=== PATIENT | male | born 1970 | race African-American/Black ===

== ENCOUNTER 2019-01-09 15:19 | Emergency (ER) | payer MEDICARE, MEDICAID ==
[2019-01-09 15:30] VITALS: BP 130/88
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
[2019-01-09 16:08] LABS: APPEARANCE,URINE CLEAR; BILIRUBIN,URINE NEGATIVE (NEGATIVE); COLOR,URINE YELLOW; GLUCOSE, URINE NEGATIVE (NEGATIVE); KETONES,URINE NEGATIVE (NEGATIVE); LEUKOCYTE ESTERASE,URINE NEGATIVE (NEGATIVE); NITRITE,URINE NEGATIVE (NEGATIVE); PROTEIN,URINE NEGATIVE (NEGATIVE); UROBILINOGEN,URINE NEGATIVE mg/dL (<2.0)
[2019-01-09 16:09] LABS: ABSOLUTE EOSINOPHILS # (AUTO) 0.1 10^3/uL (0.0-0.6); ABSOLUTE LYMPHOCYTES (AUTO) 1.5 10^3/uL (0.5-4.7); ABSOLUTE MONOCYTES (AUTO) 0.5 10^3/uL (0.1-1.4); ABSOLUTE NEUT (AUTO) 3.6 10^3/uL (1.7-8.2); BASOPHILS % (AUTO) 0.4 % (0-2); EOSINOPHILS % (AUTO) 1.1 % (0-6); HEMATOCRIT 42.6 % (37.9-51.0); LYMPHOCYTES % (AUTO) 26.6 % (13-45); MEAN CORPUSCULAR HEMOGLOBIN 27.7 pg (27.0-33.4); MEAN CORPUSCULAR HGB CONC 32.8 g/dL (32.0-36.0); MEAN CORPUSCULAR VOLUME 84 fl (80-97); MONOCYTES % (AUTO) 9.3 % (3-13); PLATELET COUNT 277 10^3/uL (150-450); RED BLOOD COUNT 5.05 10^6/uL (4.35-5.55); RED CELL DISTRIBUTION WIDTH 14.9 % (11.5-14.0); SEGMENTED NEUTROPHILS % (AUTO) 62.6 % (42-78); TOTAL CELLS COUNTED % (AUTO) 100 %; WHITE BLOOD COUNT 5.8 10^3/uL (4.0-10.5)
[2019-01-09 16:20] LABS: ALBUMIN 4.2 g/dL (3.5-5.0); ALKALINE PHOSPHATASE 83 U/L (38-126); ANION GAP 10 (5-19); ASPARTATE AMINO TRANSFERASE 16 U/L (17-59); BILIRUBIN,DIRECT 0.1 mg/dL (0.0-0.4); BILIRUBIN,TOTAL 0.3 mg/dL (0.2-1.3); BLOOD UREA NITROGEN 14 mg/dL (7-20); CALCIUM 9.6 mg/dL (8.4-10.2); CARBON DIOXIDE 27 mmol/L (22-30); CHLORIDE 103 mmol/L (98-107); GLUCOSE 78 mg/dL (75-110); POTASSIUM 3.8 mmol/L (3.6-5.0); TOTAL PROTEIN 7.4 g/dL (6.3-8.2)
[2019-01-09 16:28] LABS: URINE AMPHETAMINES SCREEN NEGATIVE; URINE BARBITURATES SCREEN NEGATIVE; URINE BENZODIAZEPINES SCREEN NEGATIVE; URINE COCAINE SCREEN NEGATIVE; URINE MARIJUANA (THC) SCREEN NEGATIVE; URINE METHADONE SCREEN NEGATIVE; URINE PHENCYCLIDINE SCREEN NEGATIVE
[2019-01-09 16:31] LABS: ACETAMINOPHEN < 10 ug/mL (10-30); ALCOHOL < 10 mg/dL (NONE DETECTED); SALICYLATE < 1.0 mg/dL (2.0-20.0)
--- NOTE | 2019-01-09 19:57 | EKG REPORT ---
SEVERITY:- BORDERLINE ECG - SINUS RHYTHM BORDERLINE T ABNORMALITIES, ANT-LAT LEADS : Confirmed by: Wedny Park MD 09-Jan-2019 19:56:39
== END 2019-01-09 18:30 | disposition home or self-care (01) ==
LOC: ER 15:19
DX: F84.0 Autistic disorder (principal); F79 Unspecified intellectual disabilities; F20.9 Schizophrenia, unspecified; R45.6 Violent behavior; H40.9 Unspecified glaucoma; Z79.899 Other long term (current) drug therapy; Z79.82 Long term (current) use of aspirin; Z79.1 Long term (current) use of non-steroidal anti-inflammatories (NSAID); Z88.8 Allergy status to other drugs, medicaments and biological substances
CPT/HCPCS: 36415; 80053; 80164; 80307; 81001; 85025; 93005; 93010; 99285

== ENCOUNTER → 2019-11-22 | Outpatient (CLI) | payer MEDICARE, MEDICAID ==
--- NOTE | 2019-11-22 10:13 | RADIOLOGY REPORT (SQ) ---
EXAM DESCRIPTION: COOKIE SWALLOW IMAGES COMPLETED DATE/TIME: 11/22/2019 8:56 am REASON FOR STUDY: DYSPHAGIA (R13.19), ABN WEIGHT LOSS (R63.4), OTH SPEECH/LANG DEFICITS FOLLO R13.19 OTHER DYSPHAGIA R63.4 ABNORMAL WEIGHT LOSS I69.828 OTH SPEECH/LANG DEFICITS FOLLOWING OTH CEREBVA SC DIS COMPARISON: None. TECHNIQUE: Videofluoroscopic swallowing examination was performed in conjunction with speech patholo gy. Videofluoroscopic imaging was obtained and reviewed and these are the findings: RADIATION DOSE: Fluoro time 4.15 minutes 1 images saved to PACS. LIMITATIONS: None FINDINGS: The patient was brought into the fluoro room and placed upright on a modified barium swall ow chair. The patient was then given multiple consistencies mixed with barium to swallow under live fluoroscopic video guidance. According to the Speech Pathologist there was laryngeal penetration wit h trace aspiration seen with thin, nectar thick and pureed consistencies. Please refer to the speech pathology report for further details. IMPRESSION: LARYNGEAL PENETRATION WITH TRACE ASPIRATION SEEN WITH THIN, NECTAR THICK AND PUREED CONS ISTENCIES. PLEASE SEE SPEECH PATHOLOGIST REPORT FOR OTHER FINDINGS AND RECOMMENDATIONS. COMMENT: None Quality ID [id number]: Final reports for procedures using fluoroscopy that document radiation exposure britany wendi, or exposure time and number of fluorographic images (if radiation exposure indices are not avail able) TECHNICAL DOCUMENTATION: JOB ID: [id number] 2010 [employer]- All Rights Reserved Reading location - IP/workstation name: [email or web address] [id number]
--- NOTE | 2019-11-22 13:39 | ST Modified Barium Swallow ---
Recommendation - Recommendations Recommendations: Patient is at aspiration risk on all textures. Spoke with Dr. Hidalgo regarding patient's status. At this time, recommend thin liquids and mechanical soft solids with ground meats. This increase in solids texture does not place patient at higher risk of aspiration than he is at baseline. Recommend strict aspiration precautions, including fully upright for meals, small bites/sips. Recommend thorough oral be performed 2-3 times per day to prevent aspiration of bacteria. Recommend continuing with current speech therapy for improved safety with meals. Should patient develop pneumonia or frequent bronchitis, patient may need re-assessment for possible alternative me ans of nutrition. Medical Diagnoses - Medical Diagnoses Medical Diagnosis Description & ICD-10 Code(s): R13.19, R63.4 Other Medical Diagnoses/Co-Morbidities: intellectual disabilities, autism - ICD-10 Tx Diagnosis Coding (1) Other dysphagia ICD-10 Code(s): R13.19 - OTHER DYSPHAGIA (2) Abnormal weight loss ICD-10 Code(s): R63.4 - ABNORMAL WEIGHT LOSS ST Modified Barium Swallow - General Date: 11/22/19 Referring Physician: Dr. Hidalgo Risks/Precautions: Falls, Aspiration Date of Onset: 11/22/19 - unknown to therapist Reason for Referral: weight loss with current diet - History -: Medical - Patient is a resident at [facility]. Patient unable to provide history or answer questions effectively. Employee of facility present and assisted with history. Patient is reportedly currently on thin liquids and puree solids. Recently, the patient has been losing weight, suspected in part due to not liking he pureed foods. They are hoping he can have a diet upgrade. He is receiving speech therapy services at his facility. Therapist spoke with physician after the evaluation. Per Dr. Hidalgo, the patient has not had any recent pneumonia or new neurological events. No significant overall changes in health over the past year, other than recent weight loss. Medications: medication list not available Allergies: risperidone - Functional Status Prior Functional Status: INDEPENDENT: feeding - on modified diet Current Functional Limitations: feeding - weight loss - Subjective Patient/caregiver goal(s): other - upgrade diet Cognitive-Linguistic Function: Moderately Impaired Speech Intelligibility: Moderately dysarthric Current Nutritional Means: PO Current PO diet: Pureed - thin liquids Current symptoms: Weight loss Pain: Patient reports, 0/5 - Objective Assessment: Upright, Left Lateral - Food Trials Used Food trials used: Thin liquids, [place] thick liquids, Pureed, Regular The patient: Required Assist - Oral-Motor Skills Dentition: Partial Oral Motor Skills: Overall decreased oral motor skills. - Assessment Oral prep: Moderately Impaired Labial closure: Not adequate - drooling and spillage seen Leakage: Anterior Mastication: Adequate - for tested textures Oral stage: Moderately Impaired - Pharyngeal Stage Initiation of Pharyngeal Stage Reflex: Normal Decreased laryngeal elevation: Yes Reduced Velopharyngeal Closure: no Reduced pressure generation: Yes reduced tongue-based retraction: Yes Pre-swallow pooling in valleculae: Moderate Pre-Swallow pooling in pyriforms: None Reduced epiglottic excursion: No Post-swallow residulas vallecular: Moderate Post-Swallow residuals in pyriforms: Mild Post-Swallow Residuals: throughout pharynx Pharyngeal Stage Comments: generally weak pharyngeal swallow seen, reduced constriction and airway closure. - Fall Risk Assessment Medications/Conditions that increase fall risks include: Antidepressants, sedatives, anti-arrhythmic, diuretic, benzodiazipenes, neuroleptics. BP regulation problems, cardiac problems, balance or gait deficits, neurological problems. Is patient considered at risk for falls: yes Fall Risk Actions Taken: No action needed - Behavioral Observations During evaluation process patient: was cooperative - Treatment / Educational Needs: Treatment/Education Needs: Treatment consisted of patient education on the role of the Speech Pathologist. Patient's plan of care and golas were communicated as well as scheduling and attendance policies. Recommendations for initial home program were shared. Patient demonstrated understanding and verbalized agreement. - Impression/Summary Laryngeal Penetration: Yes - penetration seen throughout study on liquid trials (thin and nectar), as well as with residuals after the swallow (thin, nectar, puree). Only occasional cough response seen to penetration. Tracheal Aspiration: yes - Small aspiration events were observed throughout the study. Mild aspiration occured on the swallow with thin liquids, as well as aspiration events after the swallow appearing to be due to residuals mixed with saliva entering the airway. Aspiration events were largely silent. Trailed arleen cracker bites x2, increasing the texture of the solid did not increase the risk of aspiration. Patient presents with: Pharyngeal stage dysph. - moderate to severe Risk of Aspiration: Severe Evaluation and Findings: Patient presents with severe oral and pharyngeal phase dysphagia. The patient is demonstrating aspiration on the swallow with liquids due to poor timing of the swallow, as well as aspiration after the swallow due to pharyngela residuals entering the airway. - Recommendations Solid diet recommendations: Mechanical Soft, Ground Meat Liquid Diet Modification: Thin Strict aspiration precautions: Yes Pt/Family education and followup with MD: Yes Dysphagia therapy with ADMINISTRATIVE INTERN: f/u with current thera. Recommended techniques: Fully Upright During Meal, Small Bites and Sips Supervision: requires assistance Information, Precautions and Recommendations: Patient (Written), Patient (Verbal) Other recommendations: Patient is at high risk of aspiration on all textures. Speech pathologist spoke with the patient's physician regarding this. Reportedly, the patient is not developing pneumonia and is not having recurrent respiratory difficulty, meaning he is likely not developing aspiration pneumonia. Physician wishing to continue PO diet due to no history of pneumonia recently. Should the patient begin to show signs of developing recurrent pneumonia or bronchitis, alternative means of nutrition may be indicated. - Time Total Time: 30 - Plan of Care Strategies to optimize patient understanding include:: ongoing assessment of educational needs, implementation of educational strategies, and re-education. - - -: Thank you for the opportunity to work with this patient and his/her family. Should you have any questions about this patient's plan or progress, I can be reached at [phone].
== END ==
LOC: RAD 07:57
PROVIDERS: ATTEND Family Medicine
DX: I69.828 Other speech and language deficits following other cerebrovascular disease (principal); R13.19 Other dysphagia; R63.4 Abnormal weight loss; F84.0 Autistic disorder
CPT/HCPCS: 74230